=== PATIENT | male | born 1960 | race Caucasian/White ===

== ENCOUNTER 2020-08-25 17:42 | Inpatient (IN) | payer OTHER ==
[2020-08-25] MEDS ORDERED: MAG HYDROX/AL HYDROX/SIMETH 30 ML UNIT-DOSE CUP PO ONE (20:44)
[2020-08-25 21:29] VITALS: BMI 20.7
[2020-08-25] MEDS ORDERED: MAG HYDROX/AL HYDROX/SIMETH 30 ML UNIT-DOSE CUP PO PRN (22:50)
[2020-08-25] MEDS ORDERED: IBUPROFEN 400 MG TABLET (FP) PO PRN (22:50)
[2020-08-25] MEDS ORDERED: ACETAMINOPHEN 325 MG TABLET (FP) PO PRN (22:50)
[2020-08-25] MEDS ORDERED: LOPERAMIDE HCL 2 MG CAPSULE PO PRN (22:50)
[2020-08-25] MEDS ORDERED: MAGNESIUM CITRATE 300 ML BOTTLE PO PRN (22:50)
[2020-08-25] MEDS ORDERED: MAGNESIUM HYDROX 2400MG/30ML ORAL SUSPENSION 30 ML CUP PO PRN (22:50)
[2020-08-25] MEDS ORDERED: guaiFENesin 200 MG/10 ML 10 ML UNIT-DOSE CUPS PO PRN (22:50)
[2020-08-25] MEDS ORDERED: NICOTINE POLACRILEX 2 MG GUM BC PRN (22:50)
[2020-08-25] MEDS ORDERED: P-EPHED 60MG/TRIPROLIDI 2.5MG TABLET PO PRN (22:50)
[2020-08-25] MEDS ORDERED: ONDANSETRON *ODT* 4 MG TABLET SL PRN (22:54)
[2020-08-25] MEDS: hydrOXYzine PAMOATE 25 MG CAPSULE (FP) PO PRN (23:45)
[2020-08-25] MEDS: PANTOPRAZOLE 20 MG TABLET PO SCH (23:46)
[2020-08-25] MEDS: MELATONIN 5 MG TABLETS PO SCH (23:47)
[2020-08-26] MEDS ORDERED: NICOTINE 21 MG/24 HOURS TOPICAL PATCH TD SCH (10:00)
[2020-08-26] MEDS ORDERED: PRENATAL VITAMINS W/ FOLIC ACID TABLET (FP) PO SCH (10:00)
[2020-08-26] MEDS: hydrOXYzine PAMOATE 25 MG CAPSULE (FP) PO PRN (12:37)
[2020-08-26] MEDS: PANTOPRAZOLE 20 MG TABLET PO SCH (12:37)
[2020-08-26 17:09] LABS: CALCIUM 8.8 mg/dL (8.5-10.1)
[2020-08-26 17:10] LABS: ALBUMIN 2.7 g/dl (3.4-5.0); BLOOD UREA NITROGEN 8.1 mg/dL (7-18)
[2020-08-26 17:13] LABS: CREATININE 0.6 mg/dL (0.55-1.3); HEMATOCRIT 20.3 % (35.4-49); MCH 26.2 pg (25.7-33.7); MCHC 32.9 g/dl (32.0-35.9); MEAN CELL VOLUME 79.7 fl (80-96); MEAN PLT VOLUME 8.4 fl (7.5-11.1); PLATELET COUNT 328 K/MM3 (134-434); RBC 2.54 M/mm3 (4.00-5.60); RDW 18.6 % (11.9-15.9); WHITE BLOOD COUNT 7.5 K/mm3 (4.0-10.0)
[2020-08-26 17:15] LABS: BILIRUBIN,TOTAL 0.2 mg/dL (0.2-1); TOT PROT 5.8 g/dl (6.4-8.2)
[2020-08-26 17:20] LABS: HEMOGLOBIN 6.7 GM/dL (11.7-16.9)
[2020-08-26 18:46] VITALS: TEMP 97.3
[2020-08-26 21:39] VITALS: BP 114/53; PULSE 87
[2020-08-26] MEDS ORDERED: THIAMINE HCL 100 MG TABLET (FP) PO SCH (22:00)
[2020-08-26] MEDS: MELATONIN 5 MG TABLETS PO SCH (22:43)
[2020-08-27 14:08] LABS: SARS-CoV-2 NAA Not Detected (Not Detected)
== END 2020-08-26 23:00 | disposition short-term general hospital (02) | DRG 773 ==
LOC: YASAS 17:42 → Y5N 22:26 → Y6N 08-26 10:34
PROVIDERS: ADMIT Allergy & Immunology; ATTEND Allergy & Immunology
DX: F10.20 Alcohol dependence, uncomplicated (principal); F11.20 Opioid dependence, uncomplicated; F17.210 Nicotine dependence, cigarettes, uncomplicated; U07.1 COVID-19; J45.20 Mild intermittent asthma, uncomplicated; K21.9 Gastro-esophageal reflux disease without esophagitis; M16.11 Unilateral primary osteoarthritis, right hip; Z96.653 Presence of artificial knee joint, bilateral; Z87.19 Personal history of other diseases of the digestive system; Z99.89 Dependence on other enabling machines and devices; Z59.0 Homelessness
CPT/HCPCS: 36415; 80053; 85027; 86780; 93005; 93010; C9803; U0003; U0005

== ENCOUNTER 2020-08-26 21:25 | Inpatient (IN) | payer OTHER ==
[2020-08-26 23:02] LABS: BASO % 0.6 % (0-2.0); EOS % 0.8 % (0-4.5); HEMATOCRIT 21.6 % (35.4-49); LYMPH % 20.2 % (8-40); MCH 25.6 pg (25.7-33.7); MCHC 31.8 g/dl (32.0-35.9); MEAN CELL VOLUME 80.7 fl (80-96); MEAN PLT VOLUME 8.5 fl (7.5-11.1); MONO % 12.3 % (3.8-10.2); NEUT % 66.1 % (42.8-82.8); PLATELET COUNT 334 K/MM3 (134-434); RBC 2.67 M/mm3 (4.00-5.60); RDW 18.3 % (11.9-15.9); WHITE BLOOD COUNT 6.6 K/mm3 (4.0-10.0)
[2020-08-26 23:04] LABS: INR 0.96 (0.83-1.09); PROTHROMBIN TIME (PATIENT) 11.6 SEC (9.7-13.0)
[2020-08-26 23:11] LABS: CALCIUM 8.8 mg/dL (8.5-10.1)
[2020-08-26 23:12] LABS: ALBUMIN 2.9 g/dl (3.4-5.0); BLOOD UREA NITROGEN 7.3 mg/dL (7-18)
[2020-08-26 23:15] LABS: CREATININE 0.6 mg/dL (0.55-1.3)
[2020-08-26 23:17] LABS: BILIRUBIN,TOTAL 0.2 mg/dL (0.2-1); TOT PROT 6.3 g/dl (6.4-8.2)
[2020-08-26 23:19] LABS: HEMOGLOBIN 6.9 GM/dL (11.7-16.9)
[2020-08-27] MEDS ORDERED: LORazepam 1 MG TABLET PO PRN (01:36)
[2020-08-27 01:50] LABS: RETICULOCYTES 2.06 % (0.5-1.5)
[2020-08-27] MEDS ORDERED: POLYETHYLENE GLYCOL 3350 119 GM BTL PO PRN ×2 (02:05→02:10)
[2020-08-27] MEDS ORDERED: ACETAMINOPHEN 325 MG TABLET (FP) PO PRN (02:08)
[2020-08-27] MEDS ORDERED: ALBUTEROL SO4 HFA INHALER IH PRN (03:47)
[2020-08-27] MEDS ORDERED: LIDOCAINE 5% TOPICAL PATCH ONE (04:48)
[2020-08-27] MEDS: LIDOCAINE 5% TOPICAL PATCH TP SCH ×2 (04:58→09:32)
[2020-08-27] MEDS ORDERED: ACETAMINOPHEN 500 MG TABLET (FP) PO PRN (06:42)
[2020-08-27 08:13] VITALS: BMI 21.4
[2020-08-27] MEDS ORDERED: PT OWN MED DRAWER 7, Y5N ONE (09:05)
[2020-08-27] MEDS: MULTIVITAMINS (DAILY MVI) TABLET (FP) PO SCH (09:31)
[2020-08-27] MEDS: FERROUS SO4 325 MG TABLET (FP) PO SCH (09:31)
[2020-08-27] MEDS: THIAMINE HCL 100 MG TABLET (FP) PO SCH (09:31)
[2020-08-27] MEDS: FOLIC ACID 1 MG TABLET (FP) PO SCH (09:32)
[2020-08-27] MEDS: DOCUSATE SODIUM 100 MG CAPSULE (FP) PO SCH (09:32)
[2020-08-27] MEDS: PANTOPRAZOLE 40 MG TABLET PO SCH ×2 (09:32→21:30)
[2020-08-27 11:18] LABS: URINE APPEARANCE CLEAR; URINE BILIRUBIN NEGATIVE (NEGATIVE); URINE COLOR YELLOW; URINE GLUCOSE (UA) NEGATIVE (NEGATIVE); URINE KETONE NEGATIVE (NEGATIVE); URINE LEUK ESTERASE NEGATIVE (NEGATIVE); URINE NITRITE NEGATIVE (NEGATIVE); URINE PROTEIN NEGATIVE (NEGATIVE); URINE UROBILINOGEN 0.2 mg/dL (0.2-1.0)
[2020-08-27 12:44] LABS: METHADONE, UR NEGATIVE ng/ml (CUTOFF=300); OPIATES, URI NEGATIVE ng/ml (CUTOFF=300); PHENCYCLIDINE,URINE NEGATIVE ng/ml (CUTOFF=25)
[2020-08-27 12:46] LABS: COCAINE, UR NEGATIVE ng/ml (CUTOFF=300); URINE AMPHETAMINES NEGATIVE ng/ml (CUTOFF=500); URINE BARBITURATES NEGATIVE ng/ml (CUTOFF=200); URINE BENZODIAZEPINES POSITIVE ng/ml (CUTOFF=200)
[2020-08-27 16:02] LABS: BASO % 0.5 % (0-2.0); EOS % 0.4 % (0-4.5); HEMATOCRIT 24.1 % (35.4-49); HEMOGLOBIN 7.9 GM/dL (11.7-16.9); LYMPH % 14.8 % (8-40); MCH 26.5 pg (25.7-33.7); MCHC 32.7 g/dl (32.0-35.9); MEAN PLT VOLUME 7.9 fl (7.5-11.1); MONO % 9.8 % (3.8-10.2); NEUT % 74.5 % (42.8-82.8); PLATELET COUNT 314 K/MM3 (134-434); RBC 2.97 M/mm3 (4.00-5.60); RDW 17.7 % (11.9-15.9); WHITE BLOOD COUNT 5.9 K/mm3 (4.0-10.0)
[2020-08-27 16:08] LABS: INR 1.04 (0.83-1.09); PROTHROMBIN TIME (PATIENT) 12.8 SEC (9.7-13.0)
[2020-08-27 16:11] LABS: ACTIVATED PTT 25.2 SECONDS (25.2-36.5)
[2020-08-27 16:19] LABS: CALCIUM 8.1 mg/dL (8.5-10.1)
[2020-08-27 16:20] LABS: ALBUMIN 2.6 g/dl (3.4-5.0); BLOOD UREA NITROGEN 7.5 mg/dL (7-18)
[2020-08-27 16:21] LABS: MAGNESIUM 2.1 mg/dL (1.8-2.4)
[2020-08-27 16:23] LABS: PHOSPHOROUS 3.5 mg/dL (2.5-4.9)
[2020-08-27 16:25] LABS: BILIRUBIN,TOTAL 0.4 mg/dL (0.2-1); CREATININE 0.6 mg/dL (0.55-1.3)
[2020-08-27 16:26] LABS: TOT PROT 5.5 g/dl (6.4-8.2)
[2020-08-27] MEDS: traMADol HCL 50 MG TABLET PO PRN (21:29)
[2020-08-27] MEDS: MELATONIN 5 MG TABLETS PO PRN (21:29)
[2020-08-27] MEDS: LIDOCAINE PATCH REMOVAL MC SCH (21:30)
[2020-08-27] MEDS: SENNOSIDES 8.6MG TABLET (FP) PO SCH (21:30)
[2020-08-28] MEDS: LIDOCAINE 5% TOPICAL PATCH TP SCH (09:31)
[2020-08-28] MEDS: MULTIVITAMINS (DAILY MVI) TABLET (FP) PO SCH (09:32)
[2020-08-28] MEDS: PANTOPRAZOLE 40 MG TABLET PO SCH ×2 (09:32→21:47)
[2020-08-28] MEDS: FERROUS SO4 325 MG TABLET (FP) PO SCH (09:32)
[2020-08-28] MEDS: DOCUSATE SODIUM 100 MG CAPSULE (FP) PO SCH (09:32)
[2020-08-28] MEDS: THIAMINE HCL 100 MG TABLET (FP) PO SCH (09:32)
[2020-08-28] MEDS: FOLIC ACID 1 MG TABLET (FP) PO SCH (09:32)
[2020-08-28] MEDS ORDERED: IRON SUCROSE INJECTION 200 MG in SODIUM CHLORIDE 90 ML IVPB ONE (10:00)
[2020-08-28] MEDS: SODIUM CHLORIDE 1,000 ML IV SCH (10:32)
[2020-08-28] MEDS ORDERED: PT OWN MED DRAWER 7, Y5N ONE (11:53)
[2020-08-28 13:07] LABS: SARS-CoV-2 NAA Not Detected (Not Detected)
[2020-08-28] MEDS: traMADol HCL 50 MG TABLET PO PRN ×2 (14:21→22:54)
[2020-08-28 16:50] LABS: BASO % 0.5 % (0-2.0); EOS % 0.8 % (0-4.5); HEMATOCRIT 26.3 % (35.4-49); HEMOGLOBIN 8.4 GM/dL (11.7-16.9); LYMPH % 15.3 % (8-40); MCH 25.9 pg (25.7-33.7); MEAN CELL VOLUME 80.9 fl (80-96); MEAN PLT VOLUME 8.6 fl (7.5-11.1); MONO % 11.7 % (3.8-10.2); NEUT % 71.7 % (42.8-82.8); PLATELET COUNT 323 K/MM3 (134-434); RBC 3.25 M/mm3 (4.00-5.60); RDW 18.2 % (11.9-15.9); WHITE BLOOD COUNT 5.3 K/mm3 (4.0-10.0)
[2020-08-28 17:11] LABS: ALBUMIN 2.7 g/dl (3.4-5.0); CALCIUM 8.7 mg/dL (8.5-10.1)
[2020-08-28 17:12] LABS: BLOOD UREA NITROGEN 8.3 mg/dL (7-18)
[2020-08-28 17:14] LABS: CREATININE 0.9 mg/dL (0.55-1.3)
[2020-08-28 17:16] LABS: BILIRUBIN,TOTAL 0.2 mg/dL (0.2-1); TOT PROT 5.8 g/dl (6.4-8.2)
[2020-08-28] MEDS: MELATONIN 5 MG TABLETS PO PRN (21:47)
[2020-08-28] MEDS: SENNOSIDES 8.6MG TABLET (FP) PO SCH (21:47)
[2020-08-28] MEDS: LIDOCAINE PATCH REMOVAL MC SCH (21:49)
[2020-08-29 07:25] LABS: ALBUMIN 2.6 g/dl (3.4-5.0); CALCIUM 8.4 mg/dL (8.5-10.1)
[2020-08-29 07:28] LABS: CREATININE 0.7 mg/dL (0.55-1.3)
[2020-08-29 07:29] LABS: BILIRUBIN,TOTAL 0.1 mg/dL (0.2-1); TOT PROT 5.6 g/dl (6.4-8.2)
[2020-08-29] MEDS: ASCORBIC ACID 500 MG TABLET (FP) PO SCH (09:24)
[2020-08-29] MEDS: PANTOPRAZOLE 40 MG TABLET PO SCH ×2 (09:24→22:15)
[2020-08-29] MEDS: ZINC SULFATE 220 MG CAPSULE (FP) PO SCH (09:24)
[2020-08-29] MEDS: DOCUSATE SODIUM 100 MG CAPSULE (FP) PO SCH (09:24)
[2020-08-29] MEDS: FERROUS SO4 325 MG TABLET (FP) PO SCH (09:25)
[2020-08-29] MEDS: MULTIVITAMINS (DAILY MVI) TABLET (FP) PO SCH (09:25)
[2020-08-29] MEDS: THIAMINE HCL 100 MG TABLET (FP) PO SCH (09:25)
[2020-08-29] MEDS: LIDOCAINE 5% TOPICAL PATCH TP SCH (09:25)
[2020-08-29] MEDS: FOLIC ACID 1 MG TABLET (FP) PO SCH (09:25)
[2020-08-29 14:49] LABS: MAGNESIUM 2.1 mg/dL (1.8-2.4)
[2020-08-29] MEDS: SODIUM CHLORIDE 1,000 ML IV SCH (18:56)
[2020-08-29] MEDS: SENNOSIDES 8.6MG TABLET (FP) PO SCH (22:15)
[2020-08-29] MEDS: GABAPENTIN 300 MG CAPSULE PO SCH (22:15)
[2020-08-29] MEDS: traMADol HCL 50 MG TABLET PO PRN (22:15)
[2020-08-29] MEDS: MELATONIN 5 MG TABLETS PO PRN (22:15)
[2020-08-29] MEDS: LIDOCAINE PATCH REMOVAL MC SCH (22:32)
[2020-08-30] MEDS: GABAPENTIN 300 MG CAPSULE PO SCH ×3 (05:59→21:38)
[2020-08-30] MEDS: SODIUM CHLORIDE 1,000 ML IV SCH ×3 (07:00→21:37)
[2020-08-30] MEDS ORDERED: IRON SUCROSE INJECTION 200 MG in SODIUM CHLORIDE 90 ML IVPB ONE (09:57)
[2020-08-30] MEDS: FERROUS SO4 325 MG TABLET (FP) PO SCH (11:08)
[2020-08-30] MEDS: FOLIC ACID 1 MG TABLET (FP) PO SCH (11:08)
[2020-08-30] MEDS: THIAMINE HCL 100 MG TABLET (FP) PO SCH (11:08)
[2020-08-30] MEDS: PANTOPRAZOLE 40 MG TABLET PO SCH ×2 (11:08→21:38)
[2020-08-30] MEDS: ZINC SULFATE 220 MG CAPSULE (FP) PO SCH (11:08)
[2020-08-30] MEDS: MULTIVITAMINS (DAILY MVI) TABLET (FP) PO SCH (11:09)
[2020-08-30] MEDS: ASCORBIC ACID 500 MG TABLET (FP) PO SCH (11:09)
[2020-08-30] MEDS: DOCUSATE SODIUM 100 MG CAPSULE (FP) PO SCH (11:09)
[2020-08-30] MEDS: LIDOCAINE 5% TOPICAL PATCH TP SCH (11:10)
[2020-08-30 11:57] LABS: BASO % 3.3 % (0-2.0); EOS % 0.9 % (0-4.5); HEMATOCRIT 28.8 % (35.4-49); HEMOGLOBIN 8.8 GM/dL (11.7-16.9); LYMPH % 10.2 % (8-40); MCH 25.8 pg (25.7-33.7); MCHC 30.6 g/dl (32.0-35.9); MEAN CELL VOLUME 84.5 fl (80-96); MEAN PLT VOLUME 8.3 fl (7.5-11.1); MONO % 7.2 % (3.8-10.2); NEUT % 78.4 % (42.8-82.8); PLATELET COUNT 414 K/MM3 (134-434); RBC 3.41 M/mm3 (4.00-5.60); RDW 18.9 % (11.9-15.9); WHITE BLOOD COUNT 6.8 K/mm3 (4.0-10.0)
[2020-08-30 12:11] LABS: INR 1.03 (0.83-1.09); PROTHROMBIN TIME (PATIENT) 12.4 SEC (9.7-13.0)
[2020-08-30 12:23] LABS: ANISOCYTOSIS 3+; MACROCYTOSIS 0; PLATELET ESTIMATE NORMAL; TARGET CELLS 1+; TEAR DROP CELLS 1+
[2020-08-30] MEDS ORDERED: oxyCODONE HCL 5 MG TABLET PO ONE (13:29)
[2020-08-30 14:23] LABS: CALCIUM 8.5 mg/dL (8.5-10.1)
[2020-08-30 14:24] LABS: BLOOD UREA NITROGEN 9.8 mg/dL (7-18); MAGNESIUM 2.4 mg/dL (1.8-2.4)
[2020-08-30 14:27] LABS: CREATININE 0.7 mg/dL (0.55-1.3)
[2020-08-30 14:28] LABS: BILIRUBIN,TOTAL 0.2 mg/dL (0.2-1); TOT PROT 6.2 g/dl (6.4-8.2)
[2020-08-30] MEDS: SENNOSIDES 8.6MG TABLET (FP) PO SCH (21:38)
[2020-08-30] MEDS: traMADol HCL 50 MG TABLET PO PRN (21:38)
[2020-08-30] MEDS: MELATONIN 5 MG TABLETS PO PRN (21:38)
[2020-08-30] MEDS: LIDOCAINE PATCH REMOVAL MC SCH (21:39)
[2020-08-31] MEDS: GABAPENTIN 300 MG CAPSULE PO SCH ×2 (06:00→14:52)
[2020-08-31] MEDS: FERROUS SO4 325 MG TABLET (FP) PO SCH (09:43)
[2020-08-31] MEDS: ZINC SULFATE 220 MG CAPSULE (FP) PO SCH (09:43)
[2020-08-31] MEDS: MULTIVITAMINS (DAILY MVI) TABLET (FP) PO SCH (09:43)
[2020-08-31] MEDS: DOCUSATE SODIUM 100 MG CAPSULE (FP) PO SCH (09:43)
[2020-08-31] MEDS: THIAMINE HCL 100 MG TABLET (FP) PO SCH (09:43)
[2020-08-31] MEDS: FOLIC ACID 1 MG TABLET (FP) PO SCH (09:43)
[2020-08-31] MEDS: LIDOCAINE 5% TOPICAL PATCH TP SCH (09:43)
[2020-08-31] MEDS: PANTOPRAZOLE 40 MG TABLET PO SCH (09:43)
[2020-08-31] MEDS: ASCORBIC ACID 500 MG TABLET (FP) PO SCH (09:43)
[2020-08-31] MEDS: SODIUM CHLORIDE 1,000 ML IV SCH (11:26)
[2020-08-31 12:01] LABS: BASO % 1.2 % (0-2.0); EOS % 0.8 % (0-4.5); HEMATOCRIT 26.6 % (35.4-49); HEMOGLOBIN 8.6 GM/dL (11.7-16.9); LYMPH % 16.2 % (8-40); MCH 26.9 pg (25.7-33.7); MCHC 32.4 g/dl (32.0-35.9); MEAN PLT VOLUME 8.4 fl (7.5-11.1); MONO % 7.2 % (3.8-10.2); NEUT % 74.6 % (42.8-82.8); PLATELET COUNT 370 K/MM3 (134-434); RBC 3.21 M/mm3 (4.00-5.60); RDW 19.6 % (11.9-15.9); WHITE BLOOD COUNT 7.4 K/mm3 (4.0-10.0)
[2020-08-31 12:10] LABS: INR 0.99 (0.83-1.09); PROTHROMBIN TIME (PATIENT) 12.2 SEC (9.7-13.0)
[2020-08-31 12:23] LABS: ALBUMIN 2.8 g/dl (3.4-5.0); CALCIUM 8.4 mg/dL (8.5-10.1); MAGNESIUM 2.1 mg/dL (1.8-2.4)
[2020-08-31 12:27] LABS: CREATININE 0.6 mg/dL (0.55-1.3)
[2020-08-31 12:28] LABS: BILIRUBIN,TOTAL 0.2 mg/dL (0.2-1); TOT PROT 5.6 g/dl (6.4-8.2)
[2020-08-31] MEDS ORDERED: BISACODYL 5 MG TABLET.DR (FP) PO ONE (13:18)
[2020-08-31 14:05] VITALS: TEMP 97.8
[2020-08-31] MEDS ORDERED: oxyCODONE HCL 5 MG TABLET PO ONE (14:11)
[2020-08-31] MEDS ORDERED: PANTOPRAZOLE 40 MG TABLET PO SCH (14:15)
[2020-08-31] MEDS ORDERED: SUCRALFATE 1 GM/10 ML UNIT DOSE CUPS PO SCH (14:15)
[2020-08-31 14:58] VITALS: BP 123/67; PULSE 69
[2020-08-31] MEDS ORDERED: PEG 3350/NA SULF BICARB CL/KCL 4000 ML SOLN.RECON PO ONE (17:00)
[2020-09-01 07:12] LABS: HEP B CORE AB, TOT Positive (Negative)
== END 2020-08-31 19:08 | disposition other institution (70) | DRG 243 ==
LOC: JER 21:25 → JERBED 23:49 → J4S 08-27 05:14
PROVIDERS: ADMIT Hospitalist; ATTEND Nurse Practitioner Acute Care
PROC: 30233N1 Transfusion of Nonautologous Red Blood Cells into Peripheral Vein, Percutaneous Approach (ICD-10-PCS; principal; 2020-08-27)
PROC: 0DB48ZX Excision of Esophagogastric Junction, Via Natural or Artificial Opening Endoscopic, Diagnostic (ICD-10-PCS; 2020-08-30)
PROC: 0DB58ZX Excision of Esophagus, Via Natural or Artificial Opening Endoscopic, Diagnostic (ICD-10-PCS; 2020-08-30)
DX: K22.11 Ulcer of esophagus with bleeding (principal); R13.10 Dysphagia, unspecified; Z87.11 Personal history of peptic ulcer disease; Z87.19 Personal history of other diseases of the digestive system; J45.20 Mild intermittent asthma, uncomplicated; F17.210 Nicotine dependence, cigarettes, uncomplicated; U07.1 COVID-19; D50.0 Iron deficiency anemia secondary to blood loss (chronic); F10.239 Alcohol dependence with withdrawal, unspecified; F11.10 Opioid abuse, uncomplicated; F14.10 Cocaine abuse, uncomplicated; Z59.0 Homelessness; K21.9 Gastro-esophageal reflux disease without esophagitis; K44.9 Diaphragmatic hernia without obstruction or gangrene
CPT/HCPCS: 36415; 36430; 71045-TC-FY; 71250-TC; 72170-TC-FY; 73562-TC-LT-FY; 73562-TC-RT-FY; 76937; 80053; 80307; 81003; 82105; 82272; 82607; 82728; 82746; 83540; 83550; 83615; 83690; 83735; 84100; 84436; 84443; 85025; 85045; 85379; 85610; 85730; 86140; 86704; 86706; 86707; 86708; 86709; 86769; 86803; 86850; 86900; 86901; 86922; 87340; 87522; 88305-TC; 93005; 93010; 97116-GP; 97161-GP; 99285-25; C9803; J1756; P9058; U0003; U0005

== ENCOUNTER 2020-08-31 19:33 | Inpatient (IN) | payer OTHER ==
[2020-09-01] MEDS ORDERED: NICOTINE POLACRILEX 2 MG GUM BC PRN (06:45)
[2020-09-01] MEDS ORDERED: guaiFENesin 200 MG/10 ML 10 ML UNIT-DOSE CUPS PO PRN (06:45)
[2020-09-01] MEDS ORDERED: P-EPHED 60MG/TRIPROLIDI 2.5MG TABLET PO PRN (06:45)
[2020-09-01] MEDS ORDERED: LOPERAMIDE HCL 2 MG CAPSULE PO PRN (06:45)
[2020-09-01] MEDS ORDERED: MAG HYDROX/AL HYDROX/SIMETH 30 ML UNIT-DOSE CUP PO PRN (06:45)
[2020-09-01] MEDS ORDERED: ACETAMINOPHEN 325 MG TABLET (FP) PO PRN (06:45)
[2020-09-01] MEDS ORDERED: MAGNESIUM HYDROX 2400MG/30ML ORAL SUSPENSION 30 ML CUP PO PRN (06:45)
[2020-09-01] MEDS ORDERED: MAGNESIUM CITRATE 300 ML BOTTLE PO PRN (06:45)
[2020-09-01] MEDS ORDERED: ALBUTEROL SO4 HFA INHALER IH PRN (06:48)
[2020-09-01] MEDS: IBUPROFEN 400 MG TABLET (FP) PO PRN ×2 (07:34→18:01)
[2020-09-01] MEDS ORDERED: PT OWN MED DRAWER 7, Y5N ONE ×2 (09:04→10:23)
[2020-09-01] MEDS: FERROUS SO4 325 MG TABLET (FP) PO SCH (10:19)
[2020-09-01] MEDS: PANTOPRAZOLE 40 MG TABLET PO SCH (10:19)
[2020-09-01] MEDS: PRENATAL VITAMINS W/ FOLIC ACID TABLET (FP) PO SCH (10:20)
[2020-09-01] MEDS: DOCUSATE SODIUM 100 MG CAPSULE (FP) PO SCH (10:20)
[2020-09-01] MEDS: NICOTINE 14 MG/24 HOURS TOPICAL PATCH TD SCH (10:22)
[2020-09-01] MEDS: ASCORBIC ACID 500 MG TABLET (FP) PO SCH (11:16)
[2020-09-01] MEDS: ZINC SULFATE 220 MG CAPSULE (FP) PO SCH (11:16)
[2020-09-01] MEDS: THIAMINE HCL 100 MG TABLET (FP) PO SCH (21:19)
[2020-09-01] MEDS: MELATONIN 5 MG TABLETS PO SCH (21:19)
[2020-09-01] MEDS: SENNOSIDES 8.6MG TABLET (FP) PO SCH (21:31)
[2020-09-02 07:00] VITALS: BP 114/69; PULSE 76; TEMP 97.1
[2020-09-02] MEDS: PANTOPRAZOLE 40 MG TABLET PO SCH (10:06)
[2020-09-02] MEDS: PRENATAL VITAMINS W/ FOLIC ACID TABLET (FP) PO SCH (10:06)
[2020-09-02] MEDS: DOCUSATE SODIUM 100 MG CAPSULE (FP) PO SCH (10:06)
[2020-09-02] MEDS: ASCORBIC ACID 500 MG TABLET (FP) PO SCH (10:06)
[2020-09-02] MEDS: FERROUS SO4 325 MG TABLET (FP) PO SCH (10:06)
[2020-09-02] MEDS: ZINC SULFATE 220 MG CAPSULE (FP) PO SCH (10:07)
[2020-09-02] MEDS: NICOTINE 14 MG/24 HOURS TOPICAL PATCH TD SCH (10:07)
[2020-09-02] MEDS: IBUPROFEN 400 MG TABLET (FP) PO PRN (13:53)
[2020-09-02] MEDS ORDERED: BENZOCAINE 28 GM HEMORRHOIDAL OINTMENT PR PRN (15:02)
[2020-09-02] MEDS ORDERED: PT OWN MED DRAWER 7, Y5N ONE (19:30)
[2020-09-02] MEDS: MELATONIN 5 MG TABLETS PO SCH (21:10)
[2020-09-02] MEDS: SENNOSIDES 8.6MG TABLET (FP) PO SCH (21:10)
[2020-09-02] MEDS: THIAMINE HCL 100 MG TABLET (FP) PO SCH (21:10)
[2020-09-03] MEDS ORDERED: PT OWN MED DRAWER 7, Y5N ONE (09:03)
[2020-09-03] MEDS: PANTOPRAZOLE 40 MG TABLET PO SCH (09:55)
[2020-09-03] MEDS: ZINC SULFATE 220 MG CAPSULE (FP) PO SCH (09:55)
[2020-09-03] MEDS: FERROUS SO4 325 MG TABLET (FP) PO SCH (09:55)
[2020-09-03] MEDS: DOCUSATE SODIUM 100 MG CAPSULE (FP) PO SCH (09:55)
[2020-09-03] MEDS: PRENATAL VITAMINS W/ FOLIC ACID TABLET (FP) PO SCH (09:56)
[2020-09-03] MEDS: NICOTINE 14 MG/24 HOURS TOPICAL PATCH TD SCH (09:56)
[2020-09-03] MEDS: ASCORBIC ACID 500 MG TABLET (FP) PO SCH (09:56)
[2020-09-03 10:15] LABS: PH,URINE 5.5 (5.0-8.0); URINE APPEARANCE CLEAR; URINE BILIRUBIN NEGATIVE (NEGATIVE); URINE COLOR YELLOW; URINE GLUCOSE (UA) NEGATIVE (NEGATIVE); URINE KETONE NEGATIVE (NEGATIVE); URINE LEUK ESTERASE NEGATIVE (NEGATIVE); URINE NITRITE NEGATIVE (NEGATIVE); URINE PROTEIN NEGATIVE (NEGATIVE); URINE UROBILINOGEN 0.2 mg/dL (0.2-1.0)
== END 2020-09-03 11:53 | disposition left against medical advice (07) | DRG 770 ==
LOC: YASAS 19:33 → Y3E 09-01 00:43
PROVIDERS: ADMIT Allergy & Immunology; ATTEND Allergy & Immunology
PROC: HZ42ZZZ Group Counseling for Substance Abuse Treatment, Cognitive-Behavioral (ICD-10-PCS; principal; 2020-09-01)
DX: F10.20 Alcohol dependence, uncomplicated (principal); F17.210 Nicotine dependence, cigarettes, uncomplicated; D64.9 Anemia, unspecified; J45.20 Mild intermittent asthma, uncomplicated; K21.9 Gastro-esophageal reflux disease without esophagitis; K64.9 Unspecified hemorrhoids; M16.11 Unilateral primary osteoarthritis, right hip; Z87.19 Personal history of other diseases of the digestive system; Z86.19 Personal history of other infectious and parasitic diseases; Z99.89 Dependence on other enabling machines and devices
CPT/HCPCS: 36415; 80053; 81003; 85027; 86780; C9803; U0003; U0005

== ENCOUNTER 2020-11-16 14:23 | Inpatient (IN) | payer OTHER ==
[2020-11-16] MEDS ORDERED: NICOTINE POLACRILEX 2 MG GUM BUC PRN (14:53)
[2020-11-16] MEDS ORDERED: MENTHOL/PHENOL 1 EACH UD MM PRN (14:53)
[2020-11-16] MEDS ORDERED: ACETAMINOPHEN 325 MG TABLET (FP) PO PRN (14:53)
[2020-11-16] MEDS ORDERED: ONDANSETRON *ODT* 4 MG TABLET SL PRN (14:53)
[2020-11-16] MEDS ORDERED: LORazepam 1 MG TABLET PO PRN (14:53)
[2020-11-16] MEDS ORDERED: MAGNESIUM HYDROX 2400MG/30ML ORAL SUSPENSION 30 ML CUP PO PRN (14:53)
[2020-11-16] MEDS ORDERED: MAG HYDROX/AL HYDROX/SIMETH 30 ML UNIT-DOSE CUP PO PRN (14:53)
[2020-11-16] MEDS ORDERED: METHOCARBAMOL 500 MG TABLET PO PRN (14:53)
[2020-11-16] MEDS ORDERED: MAGNESIUM CITRATE 300 ML BOTTLE PO PRN (14:53)
[2020-11-16] MEDS ORDERED: BISMUTH SUBSALICYLATE 524 MG/30 ML PO PRN (14:53)
[2020-11-16] MEDS ORDERED: LORazepam 1 MG TABLET PO ONE (15:06)
[2020-11-16 15:07] VITALS: BMI 20.7
[2020-11-16] MEDS: PRENATAL VITAMINS W/ FOLIC ACID TABLET (FP) PO SCH (17:26)
[2020-11-16] MEDS: LORazepam 2 MG TABLET PO SCH ×2 (17:26→22:48)
[2020-11-16] MEDS: PANTOPRAZOLE 40 MG TABLET PO SCH (17:26)
[2020-11-16] MEDS: hydrOXYzine PAMOATE 25 MG CAPSULE (FP) PO SCH ×2 (17:26→22:48)
[2020-11-16] MEDS: LIDOCAINE 5% TOPICAL PATCH TP SCH (17:28)
[2020-11-16] MEDS: IBUPROFEN 400 MG TABLET (FP) PO PRN (17:30)
[2020-11-16] MEDS ORDERED: TRIMETHOBENZAMIDE HCL 200MG/2ML INJ IM ONE (20:05)
[2020-11-16] MEDS ORDERED: MASKS NR ONE (20:56)
[2020-11-16] MEDS ORDERED: LIDOCAINE PATCH REMOVAL MC SCH (22:00)
[2020-11-16] MEDS ORDERED: SENNOSIDES 8.6MG TABLET (FP) PO SCH (22:00)
[2020-11-16] MEDS ORDERED: MELATONIN 5 MG TABLETS PO SCH (22:00)
[2020-11-16] MEDS ORDERED: THIAMINE HCL 100 MG TABLET (FP) PO SCH (22:00)
[2020-11-16] MEDS: ACETAMINOPHEN 325 MG TABLET (FP) PO PRN (22:46)
[2020-11-17] MEDS: LORazepam 2 MG TABLET PO SCH ×2 (06:04→10:24)
[2020-11-17] MEDS: hydrOXYzine PAMOATE 25 MG CAPSULE (FP) PO SCH ×3 (06:04→13:39)
[2020-11-17] MEDS: IBUPROFEN 400 MG TABLET (FP) PO PRN (06:05)
[2020-11-17] MEDS ORDERED: ONDANSETRON *ODT* 4 MG TABLET SL ONE ×2 (08:10→09:00)
[2020-11-17] MEDS ORDERED: ALBUTEROL SO4 HFA INHALER IH PRN (08:11)
[2020-11-17 09:17] VITALS: BP 98/57; PULSE 72; TEMP 98.1
[2020-11-17] MEDS ORDERED: FERROUS SO4 325 MG TABLET (FP) PO SCH (10:00)
[2020-11-17] MEDS: ACETAMINOPHEN 325 MG TABLET (FP) PO PRN (10:18)
[2020-11-17] MEDS: LIDOCAINE 5% TOPICAL PATCH TP SCH (10:18)
[2020-11-17] MEDS: PRENATAL VITAMINS W/ FOLIC ACID TABLET (FP) PO SCH (10:24)
[2020-11-17] MEDS: PANTOPRAZOLE 40 MG TABLET PO SCH (10:24)
[2020-11-17 11:31] LABS: HEMATOCRIT 31.5 % (35.4-49); HEMOGLOBIN 9.8 GM/dL (11.7-16.9); MCH 24.4 pg (25.7-33.7); MEAN CELL VOLUME 78.6 fl (80-96); MEAN PLT VOLUME 8.8 fl (7.5-11.1); PLATELET COUNT 287 10^3/uL (134-434); RBC 4.01 M/mm3 (4.00-5.60); WHITE BLOOD COUNT 7.6 K/mm3 (4.0-10.0)
[2020-11-17 11:51] LABS: ALBUMIN 2.9 g/dl (3.4-5.0); BLOOD UREA NITROGEN 8.8 mg/dL (7-18); CREATININE 0.8 mg/dL (0.55-1.3)
[2020-11-17 11:52] LABS: BILIRUBIN,TOTAL 0.7 mg/dL (0.2-1); CALCIUM 8.5 mg/dL (8.5-10.1); TOT PROT 6.1 g/dl (6.4-8.2)
[2020-11-18] MEDS ORDERED: LORazepam 1 MG TABLET PO SCH (05:00)
[2020-11-19] MEDS ORDERED: LORazepam 0.5 MG TABLET PO PRN
[2020-11-19] MEDS ORDERED: LORazepam 0.5 MG TABLET PO SCH (05:00)
[2020-11-20] MEDS ORDERED: LORazepam 0.5 MG TABLET PO ONE (05:00)
== END 2020-11-17 14:22 | disposition left against medical advice (07) | DRG 770 ==
LOC: YASAS 14:23 → Y6N 15:07
PROVIDERS: ADMIT Allergy & Immunology; ATTEND Allergy & Immunology
PROC: HZ2ZZZZ Detoxification Services for Substance Abuse Treatment (ICD-10-PCS; principal; 2020-11-16)
DX: F10.230 Alcohol dependence with withdrawal, uncomplicated (principal); F14.10 Cocaine abuse, uncomplicated; F12.10 Cannabis abuse, uncomplicated; F17.213 Nicotine dependence, cigarettes, with withdrawal; F19.24 Other psychoactive substance dependence with psychoactive substance-induced mood disorder; D50.9 Iron deficiency anemia, unspecified; J45.20 Mild intermittent asthma, uncomplicated; K21.9 Gastro-esophageal reflux disease without esophagitis; M16.11 Unilateral primary osteoarthritis, right hip; R26.2 Difficulty in walking, not elsewhere classified; Z99.89 Dependence on other enabling machines and devices; Z56.0 Unemployment, unspecified; Z59.0 Homelessness
CPT/HCPCS: 36415; 80053; 85027; 86780; C9803; Q0162; U0003; U0005

== ENCOUNTER 2022-11-01 12:55 | Inpatient (IN) | payer OTHER ==
[2022-11-01 14:17] VITALS: BMI 20.7
[2022-11-01] MEDS ORDERED: ALBUTEROL SO4 HFA INHALER IH PRN (18:30)
[2022-11-01] MEDS ORDERED: ACETAMINOPHEN 500 MG TABLET (FP) PO PRN (18:30)
[2022-11-01] MEDS ORDERED: DICYCLOMINE HCL 10 MG CAPSULE PO PRN (18:32)
[2022-11-01] MEDS ORDERED: POLYETHYLENE GLYCOL (HEALTHYLAX) 3350 17 GM PACKET PO PRN (18:32)
[2022-11-01] MEDS ORDERED: NICOTINE POLACRILEX 2 MG GUM BUC PRN (18:32)
[2022-11-01] MEDS ORDERED: P-EPHED 60MG/TRIPROLIDI 2.5MG TABLET PO PRN (18:32)
[2022-11-01] MEDS ORDERED: ONDANSETRON *ODT* 4 MG TABLET SL PRN (18:32)
[2022-11-01] MEDS ORDERED: ACETAMINOPHEN 325 MG TABLET (FP) PO PRN (18:32)
[2022-11-01] MEDS ORDERED: BISMUTH SUBSALICYLATE 524 MG/30 ML PO PRN (18:32)
[2022-11-01] MEDS ORDERED: METHOCARBAMOL 500 MG TABLET PO PRN (18:32)
[2022-11-01] MEDS ORDERED: LOPERAMIDE HCL 2 MG CAPSULE PO PRN (18:32)
[2022-11-01] MEDS ORDERED: NALOXONE HCL (KLOXXADO) 8 MG SPRAY NS PRN (18:32)
[2022-11-01] MEDS ORDERED: NICOTINE 10 MG CARTRIDGE (INHALER) IH PRN (18:32)
[2022-11-01] MEDS ORDERED: MAG HYDROX/AL HYDROX/SIMETH 30 ML UNIT-DOSE CUP PO PRN (18:32)
[2022-11-01] MEDS ORDERED: guaiFENesin 600 MG TABLET.ER (FP) PO PRN (18:32)
[2022-11-01] MEDS ORDERED: BENZOCAINE/MENTHOL (CHLORASEPTIC ) LOZENGE MM PRN (18:32)
[2022-11-01] MEDS ORDERED: MAGNESIUM HYDROX 2400MG/30ML ORAL SUSPENSION 30 ML CUP PO PRN (18:32)
[2022-11-01] MEDS ORDERED: NALOXONE HCL 0.4 MG/ML VIAL IM PRN (18:32)
[2022-11-01] MEDS ORDERED: hydrOXYzine PAMOATE 25 MG CAPSULE (FP) PO PRN (18:32)
[2022-11-01] MEDS ORDERED: BENZONATATE 200 MG CAPSULE PO PRN (18:32)
[2022-11-01] MEDS ORDERED: PANTOPRAZOLE 40 MG TABLET PO SCH (18:45)
[2022-11-01] MEDS ORDERED: diazePAM 5 MG TABLET PO PRN (18:59)
[2022-11-01] MEDS ORDERED: THIAMINE HCL 100 MG TABLET (FP) PO SCH (22:00)
[2022-11-01] MEDS ORDERED: MELATONIN 5 MG TABLETS PO SCH (22:00)
[2022-11-01] MEDS ORDERED: DOCUSATE SODIUM 100 MG CAPSULE (FP) PO SCH (22:00)
[2022-11-01 23:30] VITALS: BP 148/73; PULSE 63; RESP 19; TEMP 97.3
[2022-11-02] MEDS ORDERED: PRENATAL VITAMINS W/ FOLIC ACID TABLET (FP) PO SCH (10:00)
[2022-11-02] MEDS ORDERED: ASCORBIC ACID 500 MG TABLET (FP) PO SCH (10:00)
[2022-11-02] MEDS ORDERED: MULTIVITAMINS (DAILY MVI) TABLET (FP) PO SCH (10:00)
[2022-11-02] MEDS ORDERED: FERROUS SO4 325 MG TABLET (FP) PO SCH (10:00)
== END 2022-11-01 23:59 | disposition short-term general hospital (02) | DRG 773 ==
LOC: YASAS 12:55 → Y3N 18:02
PROVIDERS: ADMIT Allergy & Immunology; ATTEND Surgery
PROC: HZ2ZZZZ Detoxification Services for Substance Abuse Treatment (ICD-10-PCS; principal; 2022-11-01)
DX: F10.230 Alcohol dependence with withdrawal, uncomplicated (principal); F11.90 Opioid use, unspecified, uncomplicated; F12.20 Cannabis dependence, uncomplicated; F17.210 Nicotine dependence, cigarettes, uncomplicated; R10.13 Epigastric pain; K92.0 Hematemesis; M17.0 Bilateral primary osteoarthritis of knee; M16.11 Unilateral primary osteoarthritis, right hip; Z87.19 Personal history of other diseases of the digestive system; Z86.16 Personal history of COVID-19
CPT/HCPCS: 87635; 93005; 93010; Q0162

== ENCOUNTER 2022-11-02 00:02 | Inpatient (IN) | payer OTHER ==
[2022-11-02] MEDS ORDERED: SODIUM CHLORIDE 0.9% 500 ML INFUS.BAG IV ONE (00:37)
[2022-11-02] MEDS ORDERED: PANTOPRAZOLE SODIUM 40 MG VIAL IVPUSH ONE (00:37)
[2022-11-02] MEDS ORDERED: ONDANSETRON 4 MG/2 ML VIAL IVPUSH ONE ×3 (00:38→06:23)
[2022-11-02] MEDS ORDERED: CEFTRIAXONE 1 GM/50 ML BAG ONE (00:50)
[2022-11-02] MEDS ORDERED: ONDANSETRON 4 MG/2 ML VIAL ONE ×2 (00:50→01:49)
[2022-11-02] MEDS ORDERED: PANTOPRAZOLE SODIUM 80 MG/200 ML BAG IVPB ONE (00:50)
[2022-11-02 01:06] LABS: EOS % 0.2 % (0-4.5); HEMATOCRIT 37.8 % (35.4-49); HEMOGLOBIN 12.3 GM/dL (11.7-16.9); LYMPH % 7.4 % (8-40); MCH 27.7 pg (25.7-33.7); MCHC 32.4 g/dl (32.0-35.9); MEAN CELL VOLUME 85.4 fl (80-96); MEAN PLT VOLUME 7.7 fl (7.5-11.1); MONO % 4.9 % (3.8-10.2); NEUT % 86.5 % (42.8-82.8); PLATELET COUNT 438 10^3/uL (134-434); RBC 4.43 M/mm3 (4.00-5.60); RDW 16.7 % (11.9-15.9); WHITE BLOOD COUNT 9.5 K/mm3 (4.0-10.0)
[2022-11-02 01:12] LABS: INR 0.98 (0.83-1.09); PROTHROMBIN TIME (PATIENT) 11.4 SEC (9.7-13.0)
[2022-11-02 01:24] LABS: POTASSIUM 4.1 mmol/L (3.5-5.1)
[2022-11-02 01:26] LABS: CALCIUM 9.6 mg/dL (8.5-10.1)
[2022-11-02 01:27] LABS: ALBUMIN 3.4 g/dl (3.4-5.0); BLOOD UREA NITROGEN 3.2 mg/dL (7-18); MAGNESIUM 2.3 mg/dL (1.8-2.4)
[2022-11-02 01:29] LABS: CREATININE 0.7 mg/dL (0.55-1.3)
[2022-11-02 01:31] LABS: TOT PROT 7.2 g/dl (6.4-8.2)
[2022-11-02 01:33] LABS: BILIRUBIN,TOTAL 0.7 mg/dL (0.2-1)
[2022-11-02] MEDS ORDERED: METOCLOPRAMIDE HCL INJECTION 10 MG/2 ML VIAL ONE (02:36)
[2022-11-02] MEDS ORDERED: METOCLOPRAMIDE HCL INJECTION 10 MG/2 ML VIAL IVPUSH ONE (02:53)
[2022-11-02] MEDS ORDERED: LORazepam 1 MG TABLET PO PRN ×2 (03:36→17:37)
[2022-11-02] MEDS ORDERED: SODIUM CHLORIDE 1,000 ML IV SCH (03:45)
[2022-11-02] MEDS ORDERED: LORazepam 2 MG/ML SDV VIAL IVPUSH PRN ×2 (04:14→15:57)
[2022-11-02] MEDS ORDERED: LORazepam 1 MG TABLET PO SCH (05:00)
[2022-11-02] MEDS: SODIUM CHLORIDE 1,000 ML IV SCH ×2 (05:01→23:52)
[2022-11-02] MEDS ORDERED: ONDANSETRON 4 MG/2 ML VIAL IVPUSH PRN (06:19)
[2022-11-02 08:34] LABS: PHOSPHOROUS 2.6 mg/dL (2.5-4.9)
[2022-11-02 08:59] VITALS: BMI 21.2
[2022-11-02] MEDS: FOLIC ACID 1 MG TABLET (FP) PO SCH (09:43)
[2022-11-02] MEDS: PANTOPRAZOLE SODIUM 40 MG VIAL IVPUSH SCH ×2 (09:43→22:03)
[2022-11-02] MEDS: THIAMINE HCL 100 MG TABLET (FP) PO SCH (09:43)
[2022-11-02 11:38] LABS: INR 1.02 (0.83-1.09); PROTHROMBIN TIME (PATIENT) 11.8 SEC (9.7-13.0)
[2022-11-02 11:39] LABS: BASO % 1.1 % (0-2.0); HEMATOCRIT 35.6 % (35.4-49); HEMOGLOBIN 11.6 GM/dL (11.7-16.9); LYMPH % 5.4 % (8-40); MCHC 32.6 g/dl (32.0-35.9); MEAN CELL VOLUME 85.8 fl (80-96); MEAN PLT VOLUME 7.7 fl (7.5-11.1); MONO % 4.5 % (3.8-10.2); PLATELET COUNT 366 10^3/uL (134-434); RBC 4.15 M/mm3 (4.00-5.60); RDW 16.8 % (11.9-15.9); WHITE BLOOD COUNT 12.8 K/mm3 (4.0-10.0)
[2022-11-02 11:55] LABS: POTASSIUM 3.7 mmol/L (3.5-5.1)
[2022-11-02 11:58] LABS: BLOOD UREA NITROGEN 6.1 mg/dL (7-18); CALCIUM 8.6 mg/dL (8.5-10.1)
[2022-11-02 12:01] LABS: CREATININE 0.6 mg/dL (0.55-1.3)
[2022-11-02 12:03] LABS: BILIRUBIN,TOTAL 0.7 mg/dL (0.2-1); TOT PROT 6.1 g/dl (6.4-8.2)
[2022-11-02] MEDS ORDERED: ACETAMINOPHEN 1000 MG/100 ML BAG IVPB ONE (19:36)
[2022-11-02 20:46] LABS: HEMATOCRIT 29.6 % (35.4-49); HEMOGLOBIN 9.6 GM/dL (11.7-16.9); MCH 27.5 pg (25.7-33.7); MCHC 32.6 g/dl (32.0-35.9); MEAN CELL VOLUME 84.6 fl (80-96); MEAN PLT VOLUME 7.9 fl (7.5-11.1); PLATELET COUNT 336 10^3/uL (134-434); RDW 16.6 % (11.9-15.9); WHITE BLOOD COUNT 9.5 K/mm3 (4.0-10.0)
[2022-11-03] MEDS ORDERED: LORazepam 1 MG TABLET PO SCH (05:00)
[2022-11-03 07:33] LABS: EOS % 1.3 % (0-4.5); HEMATOCRIT 30.4 % (35.4-49); HEMOGLOBIN 10.1 GM/dL (11.7-16.9); LYMPH % 28.1 % (8-40); MCH 28.3 pg (25.7-33.7); MCHC 33.1 g/dl (32.0-35.9); MEAN CELL VOLUME 85.4 fl (80-96); MEAN PLT VOLUME 8.3 fl (7.5-11.1); MONO % 7.2 % (3.8-10.2); NEUT % 62.4 % (42.8-82.8); PLATELET COUNT 316 10^3/uL (134-434); RBC 3.56 M/mm3 (4.00-5.60); RDW 16.8 % (11.9-15.9); WHITE BLOOD COUNT 4.9 K/mm3 (4.0-10.0)
[2022-11-03 07:39] LABS: INR 1.03 (0.83-1.09)
[2022-11-03 07:54] LABS: POTASSIUM 3.6 mmol/L (3.5-5.1)
[2022-11-03 07:57] LABS: ALBUMIN 2.5 g/dl (3.4-5.0); BLOOD UREA NITROGEN 3.4 mg/dL (7-18); CALCIUM 8.3 mg/dL (8.5-10.1)
[2022-11-03 08:00] LABS: CREATININE 0.6 mg/dL (0.55-1.3)
[2022-11-03 08:02] LABS: BILIRUBIN,TOTAL 0.4 mg/dL (0.2-1); TOT PROT 5.2 g/dl (6.4-8.2)
[2022-11-03] MEDS: FOLIC ACID 1 MG TABLET (FP) PO SCH (09:13)
[2022-11-03] MEDS: PANTOPRAZOLE SODIUM 40 MG VIAL IVPUSH SCH ×2 (09:13→21:43)
[2022-11-03] MEDS: THIAMINE HCL 100 MG TABLET (FP) PO SCH (09:13)
[2022-11-03] MEDS ORDERED: ETOMIDATE 20 MG/10 ML VIAL IVPUSH ONE (09:58)
[2022-11-03] MEDS ORDERED: FLUCONAZOLE 100 MG TABLET (UD) PO ONE (14:11)
[2022-11-03] MEDS ORDERED: LORazepam 1 MG TABLET PO PRN (15:17)
[2022-11-03] MEDS: SODIUM CHLORIDE 1,000 ML IV SCH (15:26)
[2022-11-03] MEDS: MELATONIN 5 MG TABLETS PO PRN (21:44)
[2022-11-03] MEDS ORDERED: PANTOPRAZOLE SODIUM 40 MG VIAL IVPUSH SCH (22:00)
[2022-11-04] MEDS ORDERED: LORazepam 0.5 MG TABLET PO PRN
[2022-11-04] MEDS ORDERED: LORazepam 0.5 MG TABLET PO SCH (05:00)
[2022-11-04] MEDS ORDERED: diphenhydrAMINE HCL 25 MG CAPSULE (FP) PO ONE ×2 (05:11→22:32)
[2022-11-04] MEDS ORDERED: FAMOTIDINE 10 MG TABLET PO ONE (05:12)
[2022-11-04 08:36] LABS: INR 0.92 (0.83-1.09); PROTHROMBIN TIME (PATIENT) 10.7 SEC (9.7-13.0)
[2022-11-04 09:17] LABS: CHLORIDE 106 mmol/L (98-107); SODIUM 139 mmol/L (136-145)
[2022-11-04 09:20] LABS: CALCIUM 8.6 mg/dL (8.5-10.1)
[2022-11-04 09:21] LABS: ALBUMIN 2.7 g/dl (3.4-5.0); ANION GAP 7 MMOL/L (8-16); CO2 25 mmol/L (21-32); GLUCOSE,RANDOM 85 mg/dL (74-106)
[2022-11-04 09:23] LABS: CREATININE 0.6 mg/dL (0.55-1.3); SGOT/AST 10 U/L (15-37)
[2022-11-04 09:24] LABS: SGPT/ALT 17 U/L (13-61)
[2022-11-04 09:25] LABS: BILIRUBIN,TOTAL 0.3 mg/dL (0.2-1); TOT PROT 5.3 g/dl (6.4-8.2)
[2022-11-04 09:26] LABS: ALK PHOS 93 U/L (45-117)
[2022-11-04 09:30] LABS: BLOOD UREA NITROGEN 2.3 mg/dL (7-18)
[2022-11-04] MEDS ORDERED: FOLIC ACID 1 MG TABLET (FP) PO SCH (10:00)
[2022-11-04] MEDS ORDERED: FLUCONAZOLE 100 MG TABLET (UD) PO SCH ×2 (10:00)
[2022-11-04] MEDS ORDERED: THIAMINE HCL 100 MG TABLET (FP) PO SCH (10:00)
[2022-11-04] MEDS: THIAMINE HCL 100 MG TABLET (FP) PO SCH (10:24)
[2022-11-04] MEDS: FOLIC ACID 1 MG TABLET (FP) PO SCH (10:25)
[2022-11-04] MEDS: FLUCONAZOLE 100 MG TABLET (UD) PO SCH (10:25)
[2022-11-04] MEDS: PANTOPRAZOLE 40 MG TABLET PO SCH ×2 (12:17→21:53)
[2022-11-04] MEDS: PANTOPRAZOLE SODIUM 40 MG VIAL IVPUSH SCH (12:19)
[2022-11-04] MEDS: MAG HYDROX/AL HYDROX/SIMETH 30 ML UNIT-DOSE CUP PO SCH ×2 (16:30→19:53)
[2022-11-04] MEDS: MELATONIN 5 MG TABLETS PO PRN (21:58)
[2022-11-05] MEDS: MAG HYDROX/AL HYDROX/SIMETH 30 ML UNIT-DOSE CUP PO SCH ×4 (01:15→20:29)
[2022-11-05] MEDS ORDERED: LORazepam 0.5 MG TABLET PO ONE (05:00)
[2022-11-05 08:35] LABS: INR 0.99 (0.83-1.09); PROTHROMBIN TIME (PATIENT) 11.5 SEC (9.7-13.0)
[2022-11-05 08:45] LABS: EOS % 2.3 % (0-4.5); HEMATOCRIT 30.3 % (35.4-49); HEMOGLOBIN 9.9 GM/dL (11.7-16.9); LYMPH % 24.1 % (8-40); MCH 28.3 pg (25.7-33.7); MCHC 32.7 g/dl (32.0-35.9); MEAN CELL VOLUME 86.5 fl (80-96); MEAN PLT VOLUME 8.6 fl (7.5-11.1); MONO % 8.3 % (3.8-10.2); NEUT % 64.3 % (42.8-82.8); PLATELET COUNT 350 10^3/uL (134-434); RDW 16.7 % (11.9-15.9); WHITE BLOOD COUNT 5.5 K/mm3 (4.0-10.0)
[2022-11-05 09:20] LABS: ALBUMIN 2.8 g/dl (3.4-5.0); BLOOD UREA NITROGEN 4.9 mg/dL (7-18)
[2022-11-05 09:23] LABS: CREATININE 0.6 mg/dL (0.55-1.3)
[2022-11-05 09:24] LABS: TOT PROT 5.6 g/dl (6.4-8.2)
[2022-11-05] MEDS: FOLIC ACID 1 MG TABLET (FP) PO SCH (10:20)
[2022-11-05] MEDS: FLUCONAZOLE 100 MG TABLET (UD) PO SCH (10:20)
[2022-11-05] MEDS: THIAMINE HCL 100 MG TABLET (FP) PO SCH (10:20)
[2022-11-05] MEDS: PANTOPRAZOLE 40 MG TABLET PO SCH ×2 (10:20→21:11)
[2022-11-05] MEDS ORDERED: IRON SUCROSE INJECTION 200 MG in SODIUM CHLORIDE 90 ML IVPB ONE (11:00)
[2022-11-05] MEDS ORDERED: POLYETHYLENE GLYCOL (HEALTHYLAX) 3350 17 GM PACKET PO SCH (17:30)
[2022-11-05] MEDS ORDERED: POLYETHYLENE GLYCOL (HEALTHYLAX) 3350 17 GM PACKET PO ONE (17:30)
[2022-11-05] MEDS: DOCUSATE SODIUM 100 MG CAPSULE (FP) PO SCH ×2 (17:32→21:11)
[2022-11-05] MEDS: MELATONIN 5 MG TABLETS PO PRN (21:13)
[2022-11-05] MEDS ORDERED: diphenhydrAMINE HCL 25 MG CAPSULE (FP) PO ONE (23:05)
[2022-11-06] MEDS: MAG HYDROX/AL HYDROX/SIMETH 30 ML UNIT-DOSE CUP PO SCH ×4 (01:50→22:42)
[2022-11-06 07:06] LABS: CARCINOEMBRYONIC ANTIGEN 2.1 ng/mL (0.0-4.7)
[2022-11-06 09:32] LABS: POTASSIUM 4.5 mmol/L (3.5-5.1)
[2022-11-06 09:39] LABS: CREATININE 0.7 mg/dL (0.55-1.3)
[2022-11-06 09:40] LABS: BILIRUBIN,TOTAL 0.5 mg/dL (0.2-1); TOT PROT 6.2 g/dl (6.4-8.2)
[2022-11-06 09:42] LABS: ALBUMIN 3.1 g/dl (3.4-5.0); BLOOD UREA NITROGEN 4.2 mg/dL (7-18); CALCIUM 9.1 mg/dL (8.5-10.1)
[2022-11-06] MEDS: DOCUSATE SODIUM 100 MG CAPSULE (FP) PO SCH ×2 (10:07→22:43)
[2022-11-06] MEDS: PANTOPRAZOLE 40 MG TABLET PO SCH ×2 (10:11→22:42)
[2022-11-06] MEDS: FLUCONAZOLE 100 MG TABLET (UD) PO SCH (10:11)
[2022-11-06] MEDS: FOLIC ACID 1 MG TABLET (FP) PO SCH (10:11)
[2022-11-06] MEDS: THIAMINE HCL 100 MG TABLET (FP) PO SCH (10:11)
[2022-11-06 10:58] LABS: BASO % 1.2 % (0-2.0); HEMATOCRIT 35.7 % (35.4-49); HEMOGLOBIN 11.4 GM/dL (11.7-16.9); LYMPH % 21.8 % (8-40); MCH 27.4 pg (25.7-33.7); MCHC 31.8 g/dl (32.0-35.9); MEAN CELL VOLUME 86.1 fl (80-96); MEAN PLT VOLUME 8.2 fl (7.5-11.1); MONO % 8.3 % (3.8-10.2); NEUT % 66.7 % (42.8-82.8); PLATELET COUNT 345 10^3/uL (134-434); RBC 4.15 M/mm3 (4.00-5.60); WHITE BLOOD COUNT 4.8 K/mm3 (4.0-10.0)
[2022-11-06 11:07] LABS: INR 0.97 (0.83-1.09); PROTHROMBIN TIME (PATIENT) 11.3 SEC (9.7-13.0)
[2022-11-06] MEDS: MELATONIN 5 MG TABLETS PO PRN (22:43)
[2022-11-06 23:09] VITALS: RESP 18
[2022-11-07] MEDS: MAG HYDROX/AL HYDROX/SIMETH 30 ML UNIT-DOSE CUP PO SCH ×4 (03:46→21:15)
[2022-11-07] MEDS: FOLIC ACID 1 MG TABLET (FP) PO SCH (09:30)
[2022-11-07] MEDS: THIAMINE HCL 100 MG TABLET (FP) PO SCH (09:30)
[2022-11-07] MEDS: PANTOPRAZOLE 40 MG TABLET PO SCH ×2 (09:30→21:15)
[2022-11-07] MEDS: DOCUSATE SODIUM 100 MG CAPSULE (FP) PO SCH ×2 (09:30→21:15)
[2022-11-07] MEDS: FLUCONAZOLE 100 MG TABLET (UD) PO SCH (10:55)
[2022-11-07 10:58] LABS: HEMATOCRIT 34.6 % (35.4-49); HEMOGLOBIN 11.4 GM/dL (11.7-16.9); LYMPH % 18.5 % (8-40); MCH 28.4 pg (25.7-33.7); MCHC 32.9 g/dl (32.0-35.9); MEAN CELL VOLUME 86.3 fl (80-96); MEAN PLT VOLUME 8.2 fl (7.5-11.1); MONO % 11.9 % (3.8-10.2); NEUT % 67.2 % (42.8-82.8); PLATELET COUNT 288 10^3/uL (134-434); RBC 4.01 M/mm3 (4.00-5.60); RDW 16.9 % (11.9-15.9); WHITE BLOOD COUNT 4.9 K/mm3 (4.0-10.0)
[2022-11-07 10:59] LABS: EOS % 1.4 % (0-4.5)
[2022-11-07 11:03] LABS: INR 0.99 (0.83-1.09); PROTHROMBIN TIME (PATIENT) 11.5 SEC (9.7-13.0)
[2022-11-07 11:47] LABS: POTASSIUM 5.5 mmol/L (3.5-5.1)
[2022-11-07 11:50] LABS: CALCIUM 9.2 mg/dL (8.5-10.1)
[2022-11-07 11:51] LABS: BLOOD UREA NITROGEN 5.3 mg/dL (7-18)
[2022-11-07 11:54] LABS: CREATININE 0.7 mg/dL (0.55-1.3)
[2022-11-07 11:55] LABS: BILIRUBIN,TOTAL 0.4 mg/dL (0.2-1); TOT PROT 6.3 g/dl (6.4-8.2)
[2022-11-07] MEDS: MELATONIN 5 MG TABLETS PO PRN (21:15)
[2022-11-07] MEDS: ASCORBIC ACID 500 MG TABLET (FP) PO SCH (21:15)
[2022-11-07] MEDS: FERROUS SO4 300 MG/5 ML ORAL SOLN UNIT DOSE CUPS PO SCH (21:15)
[2022-11-08] MEDS: MAG HYDROX/AL HYDROX/SIMETH 30 ML UNIT-DOSE CUP PO SCH ×2 (01:21→07:45)
[2022-11-08 07:04] VITALS: BP 102/53; PULSE 55; TEMP 97.9
[2022-11-08 09:51] LABS: BASO % 0.8 % (0-2.0); HEMATOCRIT 33.3 % (35.4-49); HEMOGLOBIN 10.5 GM/dL (11.7-16.9); LYMPH % 21.3 % (8-40); MCH 27.2 pg (25.7-33.7); MCHC 31.5 g/dl (32.0-35.9); MEAN CELL VOLUME 86.5 fl (80-96); MEAN PLT VOLUME 8.8 fl (7.5-11.1); MONO % 9.6 % (3.8-10.2); NEUT % 66.3 % (42.8-82.8); PLATELET COUNT 333 10^3/uL (134-434); RBC 3.85 M/mm3 (4.00-5.60); RDW 16.2 % (11.9-15.9); WHITE BLOOD COUNT 4.8 K/mm3 (4.0-10.0)
[2022-11-08 09:53] LABS: INR 1.03 (0.83-1.09); PROTHROMBIN TIME (PATIENT) 11.9 SEC (9.7-13.0)
[2022-11-08 10:06] LABS: POTASSIUM 4.3 mmol/L (3.5-5.1)
[2022-11-08 10:10] LABS: CALCIUM 9.1 mg/dL (8.5-10.1)
[2022-11-08 10:12] LABS: ALBUMIN 3.1 g/dl (3.4-5.0); BLOOD UREA NITROGEN 5.8 mg/dL (7-18)
[2022-11-08 10:15] LABS: BILIRUBIN,TOTAL 0.3 mg/dL (0.2-1); CREATININE 0.8 mg/dL (0.55-1.3); TOT PROT 6.2 g/dl (6.4-8.2)
[2022-11-08] MEDS: FERROUS SO4 300 MG/5 ML ORAL SOLN UNIT DOSE CUPS PO SCH (10:27)
[2022-11-08] MEDS: FOLIC ACID 1 MG TABLET (FP) PO SCH (10:27)
[2022-11-08] MEDS: ASCORBIC ACID 500 MG TABLET (FP) PO SCH (10:27)
[2022-11-08] MEDS: DOCUSATE SODIUM 100 MG CAPSULE (FP) PO SCH (10:27)
[2022-11-08] MEDS: THIAMINE HCL 100 MG TABLET (FP) PO SCH (10:27)
[2022-11-08] MEDS: FLUCONAZOLE 100 MG TABLET (UD) PO SCH (10:27)
[2022-11-08] MEDS: PANTOPRAZOLE 40 MG TABLET PO SCH (10:27)
== END 2022-11-08 13:30 | disposition other institution (70) | DRG 243 ==
LOC: JER 00:02 → JERBED 02:33 → J4W 06:31 → J8W 11-03 15:01
PROVIDERS: ADMIT Internal Medicine; ATTEND Nurse Practitioner Acute Care
PROC: 0DB98ZX Excision of Duodenum, Via Natural or Artificial Opening Endoscopic, Diagnostic (ICD-10-PCS; 2022-11-03)
PROC: 0DB58ZX Excision of Esophagus, Via Natural or Artificial Opening Endoscopic, Diagnostic (ICD-10-PCS; 2022-11-03)
PROC: 0DB68ZX Excision of Stomach, Via Natural or Artificial Opening Endoscopic, Diagnostic (ICD-10-PCS; principal; 2022-11-03 14:00)
PROC: 0D758ZZ Dilation of Esophagus, Via Natural or Artificial Opening Endoscopic (ICD-10-PCS; 2022-11-06)
DX: K22.2 Esophageal obstruction (principal); B37.81 Candidal esophagitis; K92.0 Hematemesis; K21.00 Gastro-esophageal reflux disease with esophagitis, without bleeding; K29.20 Alcoholic gastritis without bleeding; I10 Essential (primary) hypertension; F12.90 Cannabis use, unspecified, uncomplicated; F17.210 Nicotine dependence, cigarettes, uncomplicated; F10.10 Alcohol abuse, uncomplicated; K44.9 Diaphragmatic hernia without obstruction or gangrene
CPT/HCPCS: 36415; 71045-TC-FY; 71250-TC; 74176-TC; 74220-TC-FY; 80053; 82105; 82378; 82728; 82784; 82977; 83540; 83550; 83605; 83690; 83735; 84100; 84155; 84165; 84484; 85025; 85027; 85045; 85610; 85730; 86140; 86334; 86850; 86900; 86901; 88104; 88305-TC; 93005; 93010; 99285-25

== ENCOUNTER 2022-11-08 14:13 | Inpatient (IN) | payer OTHER ==
[2022-11-08 15:31] VITALS: BMI 21.5
[2022-11-08] MEDS ORDERED: AMMONIUM LACTATE 12% LOTION 225 GM BOTTLE TP PRN (17:48)
[2022-11-08] MEDS ORDERED: BENZONATATE 200 MG CAPSULE PO PRN (17:48)
[2022-11-08] MEDS ORDERED: LOPERAMIDE HCL 2 MG CAPSULE PO PRN (17:48)
[2022-11-08] MEDS ORDERED: NALOXONE HCL 0.4 MG/ML VIAL IVPUSH PRN (17:48)
[2022-11-08] MEDS ORDERED: P-EPHED 60MG/TRIPROLIDI 2.5MG TABLET PO PRN (17:48)
[2022-11-08] MEDS ORDERED: ACETAMINOPHEN 325 MG TABLET (FP) PO PRN (17:48)
[2022-11-08] MEDS ORDERED: NICOTINE POLACRILEX 2 MG GUM BUC PRN (17:48)
[2022-11-08] MEDS ORDERED: POLYETHYLENE GLYCOL (HEALTHYLAX) 3350 17 GM PACKET PO PRN (17:48)
[2022-11-08] MEDS ORDERED: NALOXONE HCL (KLOXXADO) 8 MG SPRAY NS PRN (17:48)
[2022-11-08] MEDS ORDERED: guaiFENesin 600 MG TABLET.ER (FP) PO PRN (17:48)
[2022-11-08] MEDS ORDERED: MAG HYDROX/AL HYDROX/SIMETH 30 ML UNIT-DOSE CUP PO PRN (17:48)
[2022-11-08] MEDS ORDERED: BENZOCAINE/MENTHOL (CHLORASEPTIC ) LOZENGE MM PRN (17:48)
[2022-11-08] MEDS ORDERED: MAGNESIUM HYDROX 2400MG/30ML ORAL SUSPENSION 30 ML CUP PO PRN (17:48)
[2022-11-08] MEDS ORDERED: NICOTINE 10 MG CARTRIDGE (INHALER) IH PRN (17:48)
[2022-11-08] MEDS ORDERED: COLLOIDAL OATMEAL 1 BAR EACH TP PRN (17:48)
[2022-11-08 18:48] VITALS: RESP 18
[2022-11-08] MEDS ORDERED: ONDANSETRON *ODT* 4 MG TABLET SL PRN (20:24)
[2022-11-08] MEDS ORDERED: FERROUS SO4 300 MG/5 ML ORAL SOLN UNIT DOSE CUPS PO SCH (22:00)
[2022-11-08] MEDS ORDERED: FERROUS SO4 325 MG TABLET (FP) PO SCH (22:00)
[2022-11-08] MEDS: hydrOXYzine PAMOATE 25 MG CAPSULE (FP) PO PRN (22:02)
[2022-11-08] MEDS: MELATONIN 5 MG TABLETS PO SCH (22:02)
[2022-11-08] MEDS: THIAMINE HCL 100 MG TABLET (FP) PO SCH (22:03)
[2022-11-08] MEDS: DOCUSATE SODIUM 100 MG CAPSULE (FP) PO SCH (22:04)
[2022-11-08] MEDS: PANTOPRAZOLE 40 MG TABLET PO SCH (22:04)
[2022-11-08] MEDS: ASCORBIC ACID 500 MG TABLET (FP) PO SCH (22:05)
[2022-11-09] MEDS: PRENATAL VITAMINS W/ FOLIC ACID TABLET (FP) PO SCH (10:11)
[2022-11-09] MEDS: ASCORBIC ACID 500 MG TABLET (FP) PO SCH ×2 (10:11→21:20)
[2022-11-09] MEDS: PANTOPRAZOLE 40 MG TABLET PO SCH ×2 (10:11→21:20)
[2022-11-09] MEDS: DOCUSATE SODIUM 100 MG CAPSULE (FP) PO SCH ×2 (10:11→21:21)
[2022-11-09] MEDS: FERROUS SO4 325 MG TABLET (FP) PO SCH (10:31)
[2022-11-09] MEDS: hydrOXYzine PAMOATE 25 MG CAPSULE (FP) PO PRN ×2 (11:51→21:22)
[2022-11-09] MEDS: MELATONIN 5 MG TABLETS PO SCH (21:20)
[2022-11-09] MEDS: THIAMINE HCL 100 MG TABLET (FP) PO SCH (21:20)
[2022-11-10 07:11] VITALS: BP 114/60; PULSE 82; TEMP 96.5
[2022-11-10] MEDS: hydrOXYzine PAMOATE 25 MG CAPSULE (FP) PO PRN (10:32)
[2022-11-10] MEDS: PANTOPRAZOLE 40 MG TABLET PO SCH (10:32)
[2022-11-10] MEDS: PRENATAL VITAMINS W/ FOLIC ACID TABLET (FP) PO SCH (10:32)
[2022-11-10] MEDS: FERROUS SO4 325 MG TABLET (FP) PO SCH (10:32)
[2022-11-10] MEDS: ASCORBIC ACID 500 MG TABLET (FP) PO SCH (10:33)
[2022-11-10] MEDS: DOCUSATE SODIUM 100 MG CAPSULE (FP) PO SCH (10:33)
== END 2022-11-10 12:07 | disposition left against medical advice (07) | DRG 770 ==
LOC: YASAS 14:13 → Y5N 17:49
PROVIDERS: ADMIT Allergy & Immunology; ATTEND Psychiatry & Neurology Pain Medicine
PROC: HZ42ZZZ Group Counseling for Substance Abuse Treatment, Cognitive-Behavioral (ICD-10-PCS; principal; 2022-11-08)
DX: F11.20 Opioid dependence, uncomplicated (principal); F10.20 Alcohol dependence, uncomplicated; F14.20 Cocaine dependence, uncomplicated; F12.20 Cannabis dependence, uncomplicated; F17.210 Nicotine dependence, cigarettes, uncomplicated; F19.24 Other psychoactive substance dependence with psychoactive substance-induced mood disorder; J45.909 Unspecified asthma, uncomplicated; K21.9 Gastro-esophageal reflux disease without esophagitis; M17.0 Bilateral primary osteoarthritis of knee; M16.11 Unilateral primary osteoarthritis, right hip; Z99.89 Dependence on other enabling machines and devices; Z86.16 Personal history of COVID-19; Z87.19 Personal history of other diseases of the digestive system
CPT/HCPCS: Q0162

== ENCOUNTER 2023-01-02 12:07 | Inpatient (IN) | payer OTHER ==
[2023-01-02] MEDS ORDERED: METHOCARBAMOL 500 MG TABLET PO PRN (13:27)
[2023-01-02] MEDS ORDERED: BENZOCAINE/MENTHOL (CHLORASEPTIC ) LOZENGE MM PRN (13:27)
[2023-01-02] MEDS ORDERED: NALOXONE HCL (KLOXXADO) 8 MG SPRAY NS PRN (13:27)
[2023-01-02] MEDS ORDERED: IBUPROFEN 600 MG TABLET (FP) PO PRN (13:27)
[2023-01-02] MEDS ORDERED: guaiFENesin 600 MG TABLET.ER (FP) PO PRN (13:27)
[2023-01-02] MEDS ORDERED: LOPERAMIDE HCL 2 MG CAPSULE PO PRN (13:27)
[2023-01-02] MEDS ORDERED: AMMONIUM LACTATE 12% LOTION 225 GM BOTTLE TP PRN (13:27)
[2023-01-02] MEDS ORDERED: MAG HYDROX/AL HYDROX/SIMETH 30 ML UNIT-DOSE CUP PO PRN (13:27)
[2023-01-02] MEDS ORDERED: BENZONATATE 200 MG CAPSULE PO PRN (13:27)
[2023-01-02] MEDS ORDERED: COLLOIDAL OATMEAL 1 BAR EACH TP PRN (13:27)
[2023-01-02] MEDS ORDERED: ACETAMINOPHEN 325 MG TABLET (FP) PO PRN (13:27)
[2023-01-02] MEDS ORDERED: IBUPROFEN 400 MG TABLET (FP) PO PRN (13:27)
[2023-01-02] MEDS ORDERED: POLYETHYLENE GLYCOL (HEALTHYLAX) 3350 17 GM PACKET PO PRN (13:27)
[2023-01-02] MEDS ORDERED: MAGNESIUM HYDROX 2400MG/30ML ORAL SUSPENSION 30 ML CUP PO PRN (13:27)
[2023-01-02] MEDS ORDERED: hydrOXYzine PAMOATE 25 MG CAPSULE (FP) PO PRN (13:27)
[2023-01-02] MEDS ORDERED: NALOXONE HCL 0.4 MG/ML VIAL IVPUSH PRN (13:27)
[2023-01-02] MEDS ORDERED: ALBUTEROL SO4 HFA INHALER IH PRN (13:30)
[2023-01-02] MEDS: LACTULOSE 20 GM/30 ML UDC (FOR ORAL USE ONLY) PO SCH ×3 (14:30→21:07)
[2023-01-02] MEDS: LIDOCAINE 5% TOPICAL PATCH TP SCH (14:30)
[2023-01-02] MEDS: THIAMINE HCL 100 MG TABLET (FP) PO SCH (21:07)
[2023-01-02] MEDS: MELATONIN 5 MG TABLETS PO SCH (21:07)
[2023-01-02] MEDS: traZODone HCL 50 MG TABLET (FP) PO PRN (21:08)
[2023-01-02] MEDS: PANTOPRAZOLE 40 MG TABLET PO SCH (21:08)
[2023-01-02] MEDS: LIDOCAINE PATCH REMOVAL MC SCH (21:09)
[2023-01-02] MEDS ORDERED: PATIENT'S OWN MEDICATION (NON-FORMULARY) (Lidocaine Patch Removal 1 EACH Each) MC SCH (22:00)
[2023-01-03] MEDS: PANTOPRAZOLE 40 MG TABLET PO SCH ×2 (09:27→21:01)
[2023-01-03] MEDS: LIDOCAINE 5% TOPICAL PATCH TP SCH ×2 (09:27→14:24)
[2023-01-03] MEDS: PRENATAL VITAMINS W/ FOLIC ACID TABLET (FP) PO SCH (09:27)
[2023-01-03] MEDS: LACTULOSE 20 GM/30 ML UDC (FOR ORAL USE ONLY) PO SCH ×4 (09:27→21:01)
[2023-01-03] MEDS: MELATONIN 5 MG TABLETS PO SCH (21:01)
[2023-01-03] MEDS: traZODone HCL 50 MG TABLET (FP) PO PRN (21:01)
[2023-01-03] MEDS: BACITRACIN 0.9 GM PACKET TP SCH (21:01)
[2023-01-03] MEDS: THIAMINE HCL 100 MG TABLET (FP) PO SCH (21:01)
[2023-01-03] MEDS: LIDOCAINE PATCH REMOVAL MC SCH (21:02)
[2023-01-04] MEDS: PRENATAL VITAMINS W/ FOLIC ACID TABLET (FP) PO SCH (10:22)
[2023-01-04] MEDS: PANTOPRAZOLE 40 MG TABLET PO SCH ×2 (10:22→21:21)
[2023-01-04] MEDS: LIDOCAINE 5% TOPICAL PATCH TP SCH (10:25)
[2023-01-04] MEDS: LACTULOSE 20 GM/30 ML UDC (FOR ORAL USE ONLY) PO SCH ×4 (10:26→21:21)
[2023-01-04] MEDS: BACITRACIN 0.9 GM PACKET TP SCH ×2 (10:26→21:21)
[2023-01-04] MEDS: MELATONIN 5 MG TABLETS PO SCH (21:21)
[2023-01-04] MEDS: traZODone HCL 50 MG TABLET (FP) PO PRN (21:21)
[2023-01-04] MEDS: THIAMINE HCL 100 MG TABLET (FP) PO SCH (21:21)
[2023-01-04] MEDS: LIDOCAINE PATCH REMOVAL MC SCH (21:22)
[2023-01-05] MEDS: PRENATAL VITAMINS W/ FOLIC ACID TABLET (FP) PO SCH (10:18)
[2023-01-05] MEDS: LIDOCAINE 5% TOPICAL PATCH TP SCH (10:18)
[2023-01-05] MEDS: BACITRACIN 0.9 GM PACKET TP SCH ×2 (10:18→21:18)
[2023-01-05] MEDS: PANTOPRAZOLE 40 MG TABLET PO SCH ×2 (10:18→21:18)
[2023-01-05] MEDS: LACTULOSE 20 GM/30 ML UDC (FOR ORAL USE ONLY) PO SCH ×4 (10:18→21:18)
[2023-01-05] MEDS: THIAMINE HCL 100 MG TABLET (FP) PO SCH (21:18)
[2023-01-05] MEDS: traZODone HCL 50 MG TABLET (FP) PO PRN (21:18)
[2023-01-05] MEDS: MELATONIN 5 MG TABLETS PO SCH (21:18)
[2023-01-05] MEDS: LIDOCAINE PATCH REMOVAL MC SCH (21:19)
[2023-01-06 07:17] VITALS: RESP 18
[2023-01-06] MEDS: PANTOPRAZOLE 40 MG TABLET PO SCH ×2 (09:47→22:00)
[2023-01-06] MEDS: PRENATAL VITAMINS W/ FOLIC ACID TABLET (FP) PO SCH (09:47)
[2023-01-06] MEDS: BACITRACIN 0.9 GM PACKET TP SCH ×2 (09:47→22:00)
[2023-01-06] MEDS: LIDOCAINE 5% TOPICAL PATCH TP SCH (09:47)
[2023-01-06] MEDS: LACTULOSE 20 GM/30 ML UDC (FOR ORAL USE ONLY) PO SCH ×4 (09:47→21:59)
[2023-01-06] MEDS: MELATONIN 5 MG TABLETS PO SCH (21:59)
[2023-01-06] MEDS: THIAMINE HCL 100 MG TABLET (FP) PO SCH (21:59)
[2023-01-06] MEDS: LIDOCAINE PATCH REMOVAL MC SCH (21:59)
[2023-01-07 07:23] VITALS: BP 109/55; PULSE 81; TEMP 96.8
[2023-01-07] MEDS: LACTULOSE 20 GM/30 ML UDC (FOR ORAL USE ONLY) PO SCH ×3 (09:40→17:12)
[2023-01-07] MEDS: PANTOPRAZOLE 40 MG TABLET PO SCH (09:41)
[2023-01-07] MEDS: PRENATAL VITAMINS W/ FOLIC ACID TABLET (FP) PO SCH (09:41)
[2023-01-07] MEDS: LIDOCAINE 5% TOPICAL PATCH TP SCH (09:41)
[2023-01-07] MEDS: BACITRACIN 0.9 GM PACKET TP SCH (09:49)
== END 2023-01-07 17:45 | disposition left against medical advice (07) | DRG 770 ==
LOC: YASAS 12:07 → Y3W 12:08
PROVIDERS: ADMIT Allergy & Immunology; ATTEND Psychiatry & Neurology Pain Medicine
PROC: HZ42ZZZ Group Counseling for Substance Abuse Treatment, Cognitive-Behavioral (ICD-10-PCS; principal; 2023-01-02)
DX: F11.20 Opioid dependence, uncomplicated (principal); F10.20 Alcohol dependence, uncomplicated; F14.20 Cocaine dependence, uncomplicated; F12.20 Cannabis dependence, uncomplicated; F17.210 Nicotine dependence, cigarettes, uncomplicated; J45.909 Unspecified asthma, uncomplicated; K21.9 Gastro-esophageal reflux disease without esophagitis; R79.89 Other specified abnormal findings of blood chemistry; Z86.16 Personal history of COVID-19; Z87.11 Personal history of peptic ulcer disease; Z87.19 Personal history of other diseases of the digestive system
CPT/HCPCS: 36415; 82140; 86803; 87522; 87635